=== PATIENT | female | born 1990 | race African-American/Black ===

== ENCOUNTER 2020-10-02 08:33 | Day surgery (SDC) | payer OTHER ==
[2020-09-30 11:22] VITALS: BMI 20.1
[2020-10-02 08:47] VITALS: TEMP 98.5
[2020-10-02] MEDS ORDERED: MIDAZOLAM HCL 2 MG/2 ML SINGLE DOSE VIAL ONE (09:40)
[2020-10-02] MEDS ORDERED: PROPOFOL 20 ML ONE ×3 (09:40→11:25)
[2020-10-02] MEDS ORDERED: LIDOCAINE HCL 2% (50ML VIAL) INF ONE (10:10)
[2020-10-02] MEDS ORDERED: SUCCINYLCHOLINE CHLORIDE 200 MG/10 ML SYRINGE ONE (11:25)
[2020-10-02] MEDS ORDERED: ONDANSETRON 4 MG/2 ML VIAL ONE (11:28)
[2020-10-02] MEDS ORDERED: DEXAMETHASONE SOD PHOSPHATE 4 MG/1 ML VIAL ONE (11:28)
[2020-10-02 12:20] VITALS: BP 116/71; PULSE 85
== END 2020-10-02 12:00 | disposition home or self-care (01) ==
LOC: FASU 08:33
PROVIDERS: ATTEND Orthopaedic Surgery Hand Surgery
PROC: 0LB70ZZ Excision of Right Hand Tendon, Open Approach (ICD-10-PCS; principal; 2020-10-02 09:30)
DX: M67.441 Ganglion, right hand (principal)
CPT/HCPCS: 84703; 88304-TC